=== PATIENT | male | born 1955 | race Caucasian/White ===

== ENCOUNTER 2018-05-16 06:06 | Day surgery (SDC) | payer OTHER ==
[~2018-05-16 06:06] MED LIST: FENOFIBRATE134 MG; FENOFIBRIC PO; LOTREL 5-20 MG1 CAP; METFORMIN HCL850 MG PO; PERCOCET 5/3251 TAB PO; TOPROL XL25 M1; ZOCOR40 MG PO
[2018-05-16] MEDS ORDERED: CIPRO500 MG PO (09:28)
[2018-05-16] MEDS ORDERED: PERCOCET 5-3251 EACH PO (09:28)
[2018-05-16] MEDS ORDERED: POLY119PG PO (09:29)
[2018-05-16] MEDS ORDERED: SURFAK240 M1 PO (09:29)
== END 2018-05-16 12:40 | disposition home or self-care (01) ==
LOC: CIR.AMB 06:06
DX: K80.10 Calculus of gallbladder with chronic cholecystitis without obstruction (principal); K42.9 Umbilical hernia without obstruction or gangrene; K43.9 Ventral hernia without obstruction or gangrene

== ENCOUNTER 2018-07-06 18:03 | Inpatient (IN) | payer OTHER ==
[~2018-07-06] VITALS: Ht 162.6 cm; Wt 74.8 kg
[~2018-07-06 18:03] MED LIST changes: +CIPRO500 MG PO; +PERCOCET 5-3251 EACH PO; +POLY119PG PO; +SURFAK240 M1 PO
--- NOTE | 2018-07-06 18:20 | NUR ---
PT REFIERE DOLOR ABDOMINOPELVICO DESDE EL DANY DE DOLORES QUE SE MEMBRENO AGUDIZADO.
--- NOTE | 2018-07-06 19:34 | NUR ---
SE RECIBE MASCULINOA LERTA Y ORIENTADO POR ARSH ESFERAS, EN STEVENSON CON BARANDAS ELEBADAS Y SEGURAS. SE LUZ MUESTRAS DE LABORATORIO ORDENADAS. SE CANALIZA CON AREA DE VENOPUNCION CLAYTON DE EDEMA O ENROJECIMIENTO. SE ADMINISTRAN MEDICAMENTOS ORDENADOS. SE MANTIENE EN OBSERVACION POR CAMBIOS.
--- NOTE | 2018-07-06 23:23 | NUR ---
SE RECIBE PTE DEL TURNO ANTERIOR, ALERTA Y ORIENTADO X 3 EESFERAS, EN STEVENSON NIVEL MAS BAJO, NEWBERRY DE IDENTIFICACION Y BARANDAS ELEVDAS POR PRECAUCION. SE OBSERVA CON BUEN PATRON RESPIRATORIO Y PIEL TIBIA AL TACTO. IV PATENTE Y CLAYTON DE EDEMA O ERITEMA CON 0.9%NSS @100ML/HR. PTE PENDIENTE A ADMISION POR DR David TIERNEY.
[2018-07-10] MEDS ORDERED: FENOFIBRATE134 MG PO (14:15)
== END 2018-07-15 17:16 | disposition home or self-care (01) | DRG 392 ==
LOC: ER 18:03 → MEDJ 23:42 → MEDI 23:42 → SURH 07-07 07:47 → MEDJ 07-07 08:07
PROVIDERS: ADMIT Internal Medicine
PROC: BW21ZZZ Computerized Tomography (CT Scan) of Abdomen and Pelvis (ICD-10-PCS; principal; 2018-07-06)
PROC: 02HV33Z Insertion of Infusion Device into Superior Vena Cava, Percutaneous Approach (ICD-10-PCS; 2018-07-07)
DX: K57.32 Diverticulitis of large intestine without perforation or abscess without bleeding (principal); K64.8 Other hemorrhoids; K43.9 Ventral hernia without obstruction or gangrene; K59.09 Other constipation; J11.1 Influenza due to unidentified influenza virus with other respiratory manifestations; J32.0 Chronic maxillary sinusitis; E11.9 Type 2 diabetes mellitus without complications; I10 Essential (primary) hypertension; C61 Malignant neoplasm of prostate; E78.1 Pure hyperglyceridemia; E78.00 Pure hypercholesterolemia, unspecified; Z90.49 Acquired absence of other specified parts of digestive tract